=== PATIENT | male | born 2000 | race Hispanic/Latino ===

== ENCOUNTER 2020-08-13 09:58 | Emergency (ER) | payer OTHER ==
[~2020-08-13] VITALS: Ht 170.2 cm; Wt 65.8 kg
--- NOTE | 2020-08-13 10:24 | REP ---
INDICATION: fall, head inj COMPARISON: None. TECHNIQUE: Axial noncontrast images from the skull base to the vertex with coronal reformations. This CT examination was performed using the following dose reduction techniques: Automated exposure control, adjustment of mA and/or kv according to the patient's size, and use of iterative reconstruction technique. FINDINGS: The ventricles, sulci, and cisterns are normal in position and appearance. Alvarez-white differentiation is maintained. No acute intracranial hemorrhage, mass/mass effect, pathology or trauma/injury. No evidence for acute infarction. No extra-axial fluid collection. Calvarium is intact. Paranasal sinuses and mastoid air cells are clear. Small scalp contusion overlies the right frontal bone. IMPRESSION: Normal noncontrast head CT. No evidence for acute intracranial pathology or trauma/injury. <Electronically signed by Agustin Arzate > 08/13/20 [id number]
--- NOTE | 2020-08-13 10:25 | REP ---
INDICATION: fall, head inj COMPARISON: None. TECHNIQUE: Axial noncontrast images from the skull base to the thoracic inlet with coronal and sagittal re-formations This CT examination was performed using the following dose reduction techniques: Automated exposure control, adjustment of mA and/or kv according to the patient's size, and use of iterative reconstruction technique. FINDINGS: Normal alignment and lordosis is maintained. Cervical vertebral bodies including transverse processes and spinous processes are intact and there is no evidence for acute fracture / compression injury or subluxation. Spinal canal is patent. Posterior elements are intact. Paravertebral soft tissues are normal. IMPRESSION: Normal noncontrast cervical spine CT. No evidence for acute pathology or trauma/injury. <Electronically signed by Agustin Arzate > 08/13/20 [id number]
[2020-08-13] MEDS ORDERED: ACETAMINOPHEN 500 MG TAB PO ONE (10:50)
[2020-08-13 11:53] VITALS: BP 125/69
== END 2020-08-13 11:54 | disposition home or self-care (01) ==
LOC: M ED 09:58
DX: S16.1XXA Strain of muscle, fascia and tendon at neck level, initial encounter (principal); S00.93XA Contusion of unspecified part of head, initial encounter; S09.90XA Unspecified injury of head, initial encounter; R51.9 Headache, unspecified; W01.10XA Fall on same level from slipping, tripping and stumbling with subsequent striking against unspecified object, initial encounter; Y92.89 Other specified places as the place of occurrence of the external cause; Y93.9 Activity, unspecified; Y99.1 Military activity

== ENCOUNTER 2022-05-12 12:13 | Emergency (ER) | payer OTHER ==
[~2022-05-12] VITALS: Ht 172.7 cm; Wt 68.0 kg
[2022-05-12] MEDS ORDERED: ACET-683 PO (12:21)
[2022-05-12 13:17] LABS: RSV AMPLIFICATION NEGATIVE (NEGATIVE)
[2022-05-12] MEDS ORDERED: AMOX875T2 PO (13:59)
[2022-05-12 14:09] VITALS: BP 119/69
== END 2022-05-12 14:11 | disposition home or self-care (01) ==
LOC: M ED 12:13
DX: U07.1 COVID-19 (principal); J09.X2 Influenza due to identified novel influenza A virus with other respiratory manifestations; H66.91 Otitis media, unspecified, right ear; F17.290 Nicotine dependence, other tobacco product, uncomplicated

== ENCOUNTER 2023-04-19 20:38 | Emergency (ER) | payer OTHER ==
[~2023-04-19] VITALS: Ht 172.7 cm; Wt 76.4 kg
[~2023-04-19 20:38] MED LIST: ACET-683 PO; AMOX875T2 PO
[2023-04-19 22:38] VITALS: TEMP 98.7
[2023-04-19 22:45] LABS: BASO # 0.1 10^3/uL (0.0-0.2); BASO % 0.4 % (0.0-1.0); EOS # 0.2 10^3/uL (0.0-0.5); HEMATOCRIT 41.5 % (42.0-52.0); HEMOGLOBIN 14.7 g/dl (13.5-17.5); LYMPH % 16.9 % (24.0-44.0); MEAN CORPUSCULAR HGB CONC 35.4 g/dl (32.0-36.5); MEAN CORPUSCULAR VOLUME 87.6 fl (80.0-96.0); MONO # 0.9 10^3/uL (0.0-0.8); MONO % 7.7 % (2.0-8.0); NEUTROPHILS # 8.8 10^3/uL (1.5-8.5); NEUTROPHILS % 72.7 % (36.0-66.0); PLATELET COUNT, AUTOMATED 176 10^3/uL (150-450); RED BLOOD COUNT 4.74 10^6/uL (4.30-6.10); WHITE BLOOD COUNT 12.1 10^3/uL (4.0-10.0)
[2023-04-19] MEDS ORDERED: KETOROLAC 30 MG/ML 1ML VIAL IV ONE (22:50)
[2023-04-19] MEDS ORDERED: NS 1,000 ML IV ONE (22:50)
[2023-04-19] MEDS ORDERED: ISOVUE-370 76% 100ML VIAL As Ordered ONE (22:52)
[2023-04-19 23:08] LABS: ALBUMIN 3.9 G/DL (3.2-5.2); BILIRUBIN,DIRECT 0.2 MG/DL (<0.4); BILIRUBIN,TOTAL 0.7 MG/DL (0.3-1.2); TOTAL PROTEIN 6.7 G/DL (5.7-8.2)
[2023-04-19] MEDS ORDERED: COLA100C5 PO (23:49)
[2023-04-19] MEDS ORDERED: MIRA3350 PO (23:49)
[2023-04-19 23:56] VITALS: BP 115/68; O2SAT 100
== END 2023-04-19 23:58 | disposition home or self-care (01) ==
LOC: M ED 20:38
DX: K59.00 Constipation, unspecified (principal); Z79.1 Long term (current) use of non-steroidal anti-inflammatories (NSAID); Z79.899 Other long term (current) drug therapy
CPT/HCPCS: 74177; 80047; 80076; 83690; 85025; 96361; 96374; 99284; J1885; Q9967

== ENCOUNTER 2023-04-22 21:15 | Emergency (ER) | payer OTHER ==
[~2023-04-22] VITALS: Ht 172.7 cm; Wt 78.2 kg
[~2023-04-22 21:15] MED LIST changes: +COLA100C5 PO; +MIRA3350 PO
[2023-04-22 21:17] VITALS: TEMP 97.4
[2023-04-22] MEDS ORDERED: ONDANSETRON 4MG 2ML VIAL IV ONE (22:40)
[2023-04-22] MEDS ORDERED: NS 1,000 ML IV ONE (22:40)
[2023-04-22] MEDS ORDERED: KETOROLAC 30 MG/ML 1ML VIAL IV ONE (22:40)
[2023-04-22 23:01] LABS: BASO # 0.1 10^3/uL (0.0-0.2); BASO % 0.6 % (0.0-1.0); EOS % 0.1 % (0.0-3.0); HEMATOCRIT 43.5 % (42.0-52.0); HEMOGLOBIN 15.2 g/dl (13.5-17.5); LYMPH # 1.4 10^3/uL (1.5-5.0); LYMPH % 16.7 % (24.0-44.0); MEAN CORPUSCULAR HEMOGLOBIN 30.5 pg (27.0-33.0); MEAN CORPUSCULAR HGB CONC 34.9 g/dl (32.0-36.5); MEAN CORPUSCULAR VOLUME 87.2 fl (80.0-96.0); MONO % 11.5 % (2.0-8.0); NEUTROPHILS # 6.1 10^3/uL (1.5-8.5); NEUTROPHILS % 70.9 % (36.0-66.0); PLATELET COUNT, AUTOMATED 170 10^3/uL (150-450); RED BLOOD COUNT 4.99 10^6/uL (4.30-6.10); WHITE BLOOD COUNT 8.6 10^3/uL (4.0-10.0)
[2023-04-22 23:26] LABS: LIPASE 24 U/L (12-53)
[2023-04-22 23:28] LABS: ALBUMIN 3.9 G/DL (3.2-5.2); ALKALINE PHOSPHATASE 82 U/L (46-116); ALT/SGPT 24 U/L (7.0-40); AST/SGOT 20 U/L (<34); BILIRUBIN,DIRECT 0.4 MG/DL (<0.4); BILIRUBIN,TOTAL 1.3 MG/DL (0.3-1.2); BLOOD UREA NITROGEN 17 MG/DL (9-23); CALCIUM LEVEL 8.9 MG/DL (8.5-10.1); CARBON DIOXIDE LEVEL 28 MMOL/L (20-31); CHLORIDE LEVEL 100 MMOL/L (98-107); CREATININE FOR GFR 1.14 MG/DL (0.70-1.30); GLOMERULAR FILTRATION RATE > 60.0 (>60); GLUCOSE, FASTING 104 MG/DL (60-100); POTASSIUM SERUM 3.9 MMOL/L (3.5-5.1); SODIUM LEVEL 137 MMOL/L (136-145); TOTAL PROTEIN 7.2 G/DL (5.7-8.2)
[2023-04-23] MEDS: GASTROGRAFIN SOLUTION 30ML PO SCH ×2 (00:23→00:54)
[2023-04-23] MEDS ORDERED: ISOVUE-370 76% 100ML VIAL As Ordered ONE (01:41)
[2023-04-23 02:19] LABS: CHLAMYDIA DNA AMPLIFICATION NEGATIVE (NEGATIVE); GC DNA AMPLIFICATION NEGATIVE (NEGATIVE)
[2023-04-23] MEDS ORDERED: CEFP200T PO (03:09)
[2023-04-23] MEDS ORDERED: cefTRIAXone SOD 1 GM in D5W MINI-BAG PLUS 50 ML IV ONE (03:10)
[2023-04-23 03:56] VITALS: BP 118/62; O2SAT 100
== END 2023-04-23 03:57 | disposition home or self-care (01) ==
LOC: M ED 21:15
DX: N10 Acute pyelonephritis (principal); F10.10 Alcohol abuse, uncomplicated; Z79.899 Other long term (current) drug therapy; Z79.2 Long term (current) use of antibiotics; Z79.818 Long term (current) use of other agents affecting estrogen receptors and estrogen levels
CPT/HCPCS: 74018; 74177; 80048; 80076; 81001; 83690; 85025; 87088; 87186; 87810; 87850; 96361; 96374; 96375; 99284; J0696; J1885; J2405; Q9963; Q9967